=== PATIENT | male | born 1945 | race Caucasian/White ===

== ENCOUNTER 2018-03-27 11:33 | Day surgery (SDC) | payer MEDICARE, OTHER, SELFPAY ==
[2018-03-27] MEDS: PROPARACAINE 0.5% OPHTH SOL 2 DROPS EYE-OP (12:30)
[2018-03-27 12:31] VITALS: BP 144/89; PULSE 80; RESP 16; TEMP 36.7; BMI 34.7
[2018-03-27] MEDS: CATARACT EYE COMPOUND (10 DROPS/SYRINGE) 3 DROPS EYE-OP (12:35)
--- NOTE | 2018-03-27 12:44 | PM.PREOP ---
Pre-operative Note Interval Note Pre-op Check: Yes History & Physical Reviewed by Physician Changes: No
[2018-03-27] MEDS: CHONDROIDTIN/SOD HYALURONATE 1.05 ML SYRINGE INTRAOCULA (13:50)
[2018-03-27] MEDS: LIDOCAINE JELLY 2% 5 ML 1 APPLIC TOP (13:51)
[2018-03-27] MEDS: BALANCED SALT IRRIG SOLN NO.2 500 ML, EPINEPHrine 1 MG IRR (13:52)
[2018-03-27] MEDS: MOXIFLOXACIN OPHTH DROPS 3 ML BOTTLE 2 DROPS INJ (13:52)
[2018-03-27] MEDS: PHENYLEPHRINE/LIDOCAINE 3ML VIAL (OR) EYE-OP (13:52)
[2018-03-27 14:20] VITALS: BP 132/85; PULSE 78; RESP 18; TEMP 36.1
--- NOTE | 2018-03-27 14:21 | PM.OP.1 ---
Procedure & Clinicians Procedure: Cataract extraction with intraocular lens implant, right eye Same procedure as scheduled: Yes Indications: blurry vision Surgeon: Curtis Mae Anesthesia Type: MAC +/- Operative Notes Procedure in detail: Timeout was performed. The correct patient, site and implant were confirmed. The patient was prepped and draped in the typical sterile fashion. 1% lidocaine gel was placed on the right eye. A sideport blade was used to make the paracentesis. 1% preservative free lidocaine was injected into the anterior chamber, then viscoelastic was injected into the anterior chamber. A 2.6mm keratome was used to make the main incision. A curvilinear capsulorhexis was created with a cystotome and utrata forceps. A bent cannula and balanced salt solution were used to hydrodissect the lens. The lens was removed with phacoemulsification. The bag was polished. Viscoelastic was used to inflate the bag. A ZCBOO +23.0D lens was placed in the bag. Viscoelastic was removed. The wound was hydrated and found to be water tight. 1ml of moxifloxacin was injected into the anterior chamber. The eye was found to be at physiologic pressure. The patient tolerated the procedure well. There were no complications. Condition: stable Disposition: same day surgery
== END 2018-03-27 14:35 ==
LOC: OR 11:34
PROVIDERS: Visit Provider Ophthalmology
DX: H25.11 Age-related nuclear cataract, right eye (principal); I25.10 Atherosclerotic heart disease of native coronary artery without angina pectoris; I10 Essential (primary) hypertension
CPT/HCPCS: J0171

== ENCOUNTER 2018-04-17 12:56 | Day surgery (SDC) | payer MEDICARE, OTHER, SELFPAY ==
[2018-04-17 13:11] VITALS: BMI 34.7
[2018-04-17] MEDS: PROPARACAINE 0.5% OPHTH SOL 2 DROPS EYE-OP (13:16)
[2018-04-17] MEDS: CATARACT EYE COMPOUND (10 DROPS/SYRINGE) 3 DROPS EYE-OP (13:18)
[2018-04-17 13:19] VITALS: BP 129/84; PULSE 91; RESP 16; TEMP 36.3; O2SAT 98
--- NOTE | 2018-04-17 13:37 | PM.PREOP ---
Pre-operative Note Interval Note Pre-op Check: Yes History & Physical Reviewed by Physician Changes: No
[2018-04-17] MEDS: CHONDROIDTIN/SOD HYALURONATE 1.05 ML SYRINGE INTRAOCULA (13:50)
[2018-04-17] MEDS: LIDOCAINE JELLY 2% 5 ML 1 APPLIC TOP (13:51)
[2018-04-17] MEDS: MOXIFLOXACIN OPHTH DROPS 3 ML BOTTLE 2 DROPS INJ (13:52)
[2018-04-17] MEDS: PHENYLEPHRINE/LIDOCAINE VIAL (OR) 0.2 ML EYE-OP (13:53)
[2018-04-17] MEDS: BALANCED SALT IRRIG SOLN NO.2 500 ML, EPINEPHrine 1 MG IRR (13:54)
[2018-04-17 14:31] VITALS: BP 133/96; PULSE 83; RESP 18; TEMP 36.1; O2SAT 99
--- NOTE | 2018-04-17 15:55 | P.OP_ITS ---
Procedure & Clinicians Procedure: Cataract extraction with intraocular lens implant left eye Same procedure as scheduled: Yes Indications: Blurry vision Surgeon: Curtis Mae Anesthesia Type: MAC +/- Operative Notes Procedure in detail: The patient was brought back into the operating room. Timeout was performed and the correct patient, procedure and site were confirmed. The patient was prepped and draped in the typical sterile fashion. A paracentesis was made in the left eye left to the primary wound site. 1% preservative free lidocaine was injected into the anterior chamber, then viscoelastic was injected into the anterior chamber. A 2.6mm Keratome was used to create the main incision. A 6.2 mm malyugin ring was placed. A capsulorhexis was created with a cystotome and utrata forceps. Hydrodissection was performed with balanced salt solution and a straight cannula. The lens was removed with phacoemulsification and the bag was filled with viscoelastic. A ZCBOO +21.5D lens was inserted. The malyugin ring was removed and then viscoelastic was removed. The main wound was hydrated. A small Descemet's tear was appreciated nasal to the main wound but well outside of the central axis. The flap was repositioned with balanced salt solution and air was injected into the anterior chamber. The Descemet's tear appeared well approximated. The wound was found to be water tight and the eye was found to be at physiologic pressure. The patient tolerated the procedure well. Complications: none Condition: stable Disposition: same day surgery
== END 2018-04-17 14:34 | disposition home or self-care (01) ==
PROVIDERS: Visit Provider Ophthalmology
PROC: (CPT 66982; principal; 2018-04-17 14:00)
DX: H25.12 Age-related nuclear cataract, left eye (principal); I25.10 Atherosclerotic heart disease of native coronary artery without angina pectoris; I10 Essential (primary) hypertension
CPT/HCPCS: 66982; J0171; J2250; J3010